=== PATIENT | female | born 2000 | race Caucasian/White ===

== ENCOUNTER 2023-10-31 06:20 | Inpatient (IN) ==
[2023-10-31] MEDS ORDERED: ANCEF VIAL 1 GRAM ONE (06:39)
[2023-10-31] MEDS ORDERED: NS 100 ML IV 100 ML ONE (06:39)
[2023-10-31] MEDS ORDERED: ANCEF VIAL 1 GRAM IVP ONE (06:40)
[2023-10-31] MEDS ORDERED: LR 1,000 ML IV 1,000 ML IV ONE ×3 (06:40→07:07)
[2023-10-31] MEDS ORDERED: ZOFRAN INJ 4 MG VIAL ONE (06:48)
[2023-10-31] MEDS ORDERED: REGLAN INJ 10 MG VIAL ONE (06:48)
[2023-10-31] MEDS ORDERED: PEPCID 20 MG VIAL ONE (06:49)
[2023-10-31] MEDS ORDERED: NOZIN NASAL SANITIZER TP ONE (07:03)
[2023-10-31] MEDS ORDERED: DIPRIVAN VIAL 20 ML ONE ×2 (07:13→08:43)
[2023-10-31] MEDS ORDERED: PITOCIN ONE (07:13)
[2023-10-31] MEDS ORDERED: DILAUDID INJ ONE (07:15)
[2023-10-31] MEDS ORDERED: MARCAINE SPINAL ONE (07:16)
[2023-10-31] MEDS ORDERED: NEO-SYNEPHRINE INJ ONE (07:41)
[2023-10-31] MEDS ORDERED: EPHEDRINE SULFATE INJ ONE (07:44)
[2023-10-31] MEDS ORDERED: NARCAN INJ ONE (08:32)
[2023-10-31] MEDS ORDERED: TORADOL 30 MG VIAL ONE (09:18)
[2023-10-31] MEDS ORDERED: ZOFRAN INJ 4 MG VIAL IVP PRN ×2 (09:20→09:39)
[2023-10-31] MEDS ORDERED: BENADRYL INJ 50 MG VIAL IVP PRN ×2 (09:20→09:39)
[2023-10-31] MEDS ORDERED: REGLAN INJ 10 MG VIAL IVP PRN ×2 (09:20→09:39)
[2023-10-31] MEDS ORDERED: BARHEMSYS INJ IVP PRN (09:20)
[2023-10-31] MEDS ORDERED: PERCOCET TAB 5/325 MG PO PRN (09:39)
[2023-10-31] MEDS ORDERED: MYLICON TAB 80 MG CHEW PO PRN (09:39)
[2023-10-31] MEDS ORDERED: NARCAN INJ IVP PRN (09:39)
[2023-10-31] MEDS ORDERED: ADACEL or BOOSTRIX TDaP VACCINE IM ONE (09:39)
[2023-10-31] MEDS ORDERED: TORADOL 30 MG VIAL IVP PRN (09:39)
[2023-10-31] MEDS ORDERED: D5 1/2 NS 1,000 ML 1,000 ML with PITOCIN 20 UNITS IV SCH ×2 (10:00)
[2023-10-31] MEDS ORDERED: NS IRRIGATION* 500 ML IR ONE (16:24)
[2023-10-31] MEDS ORDERED: ZOFRAN TAB 4 MG PO PRN (16:54)
[2023-10-31] MEDS ORDERED: ZOFRAN TAB 4 MG ONE (17:20)
[2023-10-31] MEDS: COLACE CAP 100 MG PO SCH (20:39)
[2023-10-31] MEDS: PERCOCET TAB 5/325 MG PO PRN (22:35)
[2023-11-01 05:31] LABS: HEMOGLOBIN 9.3 g/dL (12.0-16.0)
[2023-11-01] MEDS: MOTRIN TAB 800 MG PO PRN ×2 (08:00→17:30)
[2023-11-01] MEDS: COLACE CAP 100 MG PO SCH ×2 (09:08→20:08)
[2023-11-01] MEDS: PRENATAL PLUS PO SCH (09:08)
[2023-11-01] MEDS: BACTROBAN TOPICAL OINT TOP SCH (14:10)
[2023-11-01] MEDS ORDERED: ADACEL or BOOSTRIX TDaP VACCINE IM ONE (15:00)
[2023-11-01] MEDS: PERCOCET TAB 5/325 MG PO PRN (19:09)
[2023-11-02] MEDS: PERCOCET TAB 5/325 MG PO PRN (06:07)
[2023-11-02] MEDS: BACTROBAN TOPICAL OINT TOP SCH (06:08)
[2023-11-02 08:38] VITALS: BP 132/74; PULSE 90; RESP 18; TEMP 97.9; O2SAT 99
[2023-11-02] MEDS: PRENATAL PLUS PO SCH (09:11)
[2023-11-02] MEDS: COLACE CAP 100 MG PO SCH (09:11)
== END 2023-11-02 11:30 | disposition home or self-care (01) | DRG 788 ==
LOC: LD 06:20 → MED/SURG 09:40
PROVIDERS: ADMIT Specialist; ATTEND Specialist
DX: B95.1 Streptococcus, group B, as the cause of diseases classified elsewhere; Z01.812 Encounter for preprocedural laboratory examination; R79.89 Other specified abnormal findings of blood chemistry; O98.82 Other maternal infectious and parasitic diseases complicating childbirth; Z3A.39 39 weeks gestation of pregnancy; Z37.0 Single live birth